=== PATIENT | female | born 1990 | race Caucasian/White ===

== ENCOUNTER → 2019-09-07 13:35 | Outpatient (CLI) | payer OTHER, MEDICAID, SELFPAY ==
[2019-09-07 16:10] LABS: Urine N gonorrhoeae NOT DETECTED
[2019-09-07 16:11] LABS: Urine Chlamydia NOT DETECTED
== END ==
PROVIDERS: Visit Provider Physician Assistant
DX: Z11.3 Encounter for screening for infections with a predominantly sexual mode of transmission (principal)
CPT/HCPCS: 87491; 87591